=== PATIENT | male | born 2000 | race Two or more races ===

== ENCOUNTER 2023-01-03 04:17 | Emergency (ER) | payer OTHER ==
[~2023-01-03] VITALS: Ht 170.2 cm; Wt 90.0 kg
[2023-01-03 04:49] LABS: Basophils # (auto) 0 10 ^3/uL (0-0.2); Basophils % (auto) 0.3 % (0.0-2.0); Hemoglobin 13.5 g/dL (13.5-17.5); Lymphocytes # (auto) 3.5 10 ^3/uL (0.4-5.4); Lymphocytes % (auto) 35.5 % (10.0-50.0); Monocytes # (auto) 0.7 10 ^3/uL (0-1.3); Monocytes % (auto) 7.4 % (0.0-12.0); Neutrophils # (auto) 5.3 10 ^3/uL (1.6-8.6); White Blood Cell 9.9 10^3/uL (4.4-10.8)
[2023-01-03 04:51] LABS: Eosinophils # (auto) 0.4 10 ^3/uL (0-0.8); Eosinophils % (auto) 3.6 % (0.0-7.0); Hematocrit 41.4 % (41.0-53.0); Mean Corpuscular Hgb Conc. 32.6 g/dL (32.0-36.0); Mean Corpuscular Volume 76.7 fL (80.0-100.0); Neutrophils % (auto) 53.2 % (37.0-80.0); Red Cell Distribution Width 16.6 % (11.8-14.3)
[2023-01-03 05:06] LABS: Prothrombin Time 10.5 sec (9.3-11.8)
[2023-01-03 05:11] LABS: Alanine Aminotransferase 16 U/L (7-40); Albumin 3.9 g/dL (3.2-4.8); Alkaline Phosphatase 83 U/L (46-116); Anion Gap 4 (5-15); Aspartate Aminotransferase 15 U/L (13-40); BUN/Creatinine Ratio 5.6 (10.0-20.0); Blood Urea Nitrogen 6 mg/dL (9-23); Calcium 8.6 mg/dL (8.7-10.4); Carbon Dioxide 28 mmol/L (20-30); Chloride 108 mmol/L (98-107); Glucose 102 mg/dL (74-106); Magnesium 2.1 mg/dL (1.6-2.6); Sodium 140 mmol/L (136-145)
[2023-01-03 05:12] LABS: Bilirubin, Total 0.2 mg/dL (0.2-1.0); Total Protein 5.8 g/dL (5.7-8.2)
[2023-01-03] MEDS ORDERED: ONDANSETRON ODT 4 MG TAB PO ONE (05:45)
[2023-01-03] MEDS ORDERED: LIDOCAINE VISCOUS 2% 15ML UD PO ONE (05:45)
[2023-01-03] MEDS ORDERED: LORazepam 0.5 MG TAB PO ONE (05:45)
[2023-01-03] MEDS ORDERED: ACETAMINOPHEN 325 MG TAB PO ONE (05:45)
[2023-01-03] MEDS ORDERED: MAALOX PLUS or MAALOX 30 ML PO ONE (05:45)
[2023-01-03] MEDS ORDERED: ACET-1304 PO (06:01)
[2023-01-03] MEDS ORDERED: PANT40TA2 PO (06:01)
[2023-01-03] MEDS ORDERED: HYDR25CA PO (06:01)
[2023-01-03 07:37] VITALS: BP 121/68; PULSE 68; RESP 17; TEMP 98.9; O2SAT 100
== END 2023-01-03 07:39 | disposition home or self-care (01) ==
LOC: ER 04:17
DX: R07.9 Chest pain, unspecified (principal); F41.0 Panic disorder [episodic paroxysmal anxiety]; Z79.899 Other long term (current) drug therapy
CPT/HCPCS: 36415; 71045; 80053; 80320; 83735; 83880; 84484; 85025; 85610; 85730; 93005; 99285; Q0162

== ENCOUNTER 2024-02-19 20:13 | Emergency (ER) | payer OTHER ==
[~2024-02-19] VITALS: Ht 170.2 cm; Wt 91.6 kg
[~2024-02-19 20:13] MED LIST: ACET-1304 PO; HYDR25CA PO; PANT40TA2 PO
--- NOTE | 2024-02-19 21:22 | ED.PDOC ---
History of Present Illness HPI Comments 23M previously healthy presents with one week of pain and swelling to his left 3rd digit. He reports he was seen at urgent care and started on antibiotics but it has a not helped. He denies any fever chills nausea vomiting diarrhea dysuria polyuria sick contacts or recent travel Time Seen by MD: 21:12 Allergies: Coded Allergies: NO KNOWN ALLERGIES (Unverified , 01/03/23) Home Meds Active Scripts Acetaminophen (Tylenol Extra Strength) 500 Mg Tab, 500 MG PO TID, #20 TAB Prov:RUSTY MONTES DE OCA MD 01/03/23 Hydroxyzine Pamoate (Vistaril) 25 Mg Cap, 1 CAP PO TID, #90 CAP 1 Refill Prov:RUSTY MONTES DE OCA MD 01/03/23 Pantoprazole Sodium Sesquihydr (Protonix) 40 Mg Tab, 40 MG PO DAILY, #30 TAB Prov:RUSTY MONTES DE OCA MD 01/03/23 Physical Exam General Appearance: No Apparent Distress, Normal HEENT: Normal ENT Inspection, Pharynx Normal, TMs Normal Neck: Full Range of Motion, Non-Tender, Normal, Normal Inspection Respiratory: Chest Non-Tender, Lungs Clear, No Accessory Muscle Use, No Respiratory Distress, Normal Breath Sounds Cardiovascular: No Edema, No JVD, No Murmur, No Gallop, Normal Peripheral Pulses, Regular Rate/Rhythm Breast Exam: Deferred Gastrointestinal: No Organomegaly, Non Tender, No Pulsatile Mass, Normal Bowel Sounds, Soft Genitalia: Deferred Pelvic: Deferred Rectal: Deferred Extremities: Other (Left 3rd digit paronychia) Neurologic: No Motor Deficits Cerebellar Function: NOT DONE Reflexes: NOT DONE Skin: Other (Left 3rd digit paronychia) Lymphatic: No Adenopathy Was a procedure done? Was a procedure done?: Yes Sedation Sedation?: No Incision and Drainage Incision and Drainage: Abscess Location Paronychia on left 3rd digit Anesthetic: Lidocaine Preparation: Betadine Incision and Wound: Pus, Amount (4ml) Informed consent obtained: Yes Risks/benefits/alt described: Yes Differential Dx Considerations may include: paronychia, cellulitis X-Ray, Labs, Meds, VS Vital Signs Date Time Temp Pulse Resp B/P (MAP) Pulse Ox O2 Delivery O2 Flow Rate FiO2 02/19/24 21:25 99.0 127 16 112/62 (79) 96 Time of 1ST Reevaluation: 22:38 Reevaluation 1ST: Resolved Patient Education/Counseling: Diagnosis, Treatment Family Education/Counseling: No Family Present Departure 1 Departure Time of Disposition: 22:38 (I drained patients paronychia. Will discharge home with outpatient follow up.) Impression: Primary Impression: Paronychia Disposition: 01 HOME / SELF CARE / HOMELESS Condition: Stable Additional Instructions: You had a paronychia. Your infection was drained. Please wash your finger with gentle soap and water. It may continue to drain. For pain you can take the followinam: Ibuprofen 400mg with food Noon: Acetaminophen 1000mg 4pm: Ibuprofen 400mg with food 8pm: Acetaminophen 1000mg You should follow up with your regular doctor within one week to ensure you are doing better. If your symptoms worsen or you have any other concerns then please return to the ER. Discharged With: Self Critical Care Note Critical Care Time?: No Stability Stability form required: LUCA Laird MD Feb 19, 2024 21:22
[2024-02-19] MEDS: LIDOCAINE 1% HCL (LOCAL ANESTH.) INJ 20ML MDV IJ ONE (21:30)
[2024-02-19] MEDS: LIDOCAINE 1% HCL (LOCAL ANESTH.) INJ 20ML MDV ONE (21:52)
[2024-02-19] MEDS: ACETAMINOPHEN 325 MG TAB PO ONE (23:02)
[2024-02-19 23:10] VITALS: BP 112/55; PULSE 97; RESP 17; O2SAT 96
== END 2024-02-19 23:15 | disposition home or self-care (01) ==
LOC: ER 20:13
DX: L03.012 Cellulitis of left finger (principal); Z79.899 Other long term (current) drug therapy
CPT/HCPCS: 10060; 99282; J2003